=== PATIENT | male | born 1990 | race Caucasian/White ===

== ENCOUNTER 2019-03-16 20:02 | Emergency (ER) | payer OTHER ==
[~2019-03-16] VITALS: Ht 177.8 cm; Wt 87.5 kg
[~2019-03-16 20:02] MED LIST: ACTICIN 5% CREA60 GM TOP; CEPHALEXIN 500500 M2 PO; CHERACOL COUGH120 ML PO; CHLORASEPTIC177 ML MM; CLEOCIN HCL150 MG PO; CLEOCIN HCL300 MG PO; DOXYCYCLINE 10100 MG PO; IBUPROFEN 800800 M1 PO; IBUPROFEN 800800 MG PO; KEFLEX500 MG PO; LATUDA20 MG PO; MEDROLDOSEPACK PO; NOHOMEMEDICATIONS; NORCO 5-325 TA1 EACH PO; PHENERGAN-CODE120 ML PO; PREDNISONE 20 M20 M1 PO; PROVENTIL HFA6.7 G1 INH; TRAMADOL 50 MG50 MG PO; TRIAMCINOLONE A80 G2 TOP; ULTRACET TABLE1 EACH PO; ZOFRAN ODT4 MG PO; ZPAK PO
[2019-03-16] MEDS ORDERED: PREDNISONE 20 M20 MG PO (20:54)
[2019-03-16] MEDS ORDERED: ZPAK PO (20:54)
[2019-03-16 21:00] VITALS: BP 139/89
== END 2019-03-16 21:00 | disposition home or self-care (01) ==
LOC: M.ERS 20:02
DX: J03.90 Acute tonsillitis, unspecified (principal); F17.210 Nicotine dependence, cigarettes, uncomplicated; Z88.1 Allergy status to other antibiotic agents; Z88.2 Allergy status to sulfonamides

== ENCOUNTER 2019-07-22 19:24 | Emergency (ER) | payer OTHER ==
[~2019-07-22] VITALS: Ht 177.8 cm; Wt 90.7 kg
[~2019-07-22 19:24] MED LIST changes: +PREDNISONE 20 M20 MG PO
[2019-07-22] MEDS ORDERED: KEFLEX500 M1 PO (20:34)
[2019-07-22 20:41] LABS: INFLUENZA A ANTIGEN Negative (Negative)
[2019-07-22 20:45] VITALS: BP 129/89
== END 2019-07-22 20:46 | disposition home or self-care (01) ==
LOC: M.ERS 19:24
PROVIDERS: Nurse Practitioner Family
DX: J02.0 Streptococcal pharyngitis (principal); F17.210 Nicotine dependence, cigarettes, uncomplicated; Z88.1 Allergy status to other antibiotic agents; Z88.2 Allergy status to sulfonamides; Z88.8 Allergy status to other drugs, medicaments and biological substances